=== PATIENT | female | born 1975 | race Caucasian/White ===

== ENCOUNTER → 2021-05-06 | Outpatient (CLI) | payer BC ==
[~2021-05-06] MED LIST: TOPI100 PO
== END ==
LOC: LAB SHORT 08:16 → LAB 08:16
DX: N39.0 Urinary tract infection, site not specified (principal); Z88.0 Allergy status to penicillin; Z88.2 Allergy status to sulfonamides
CPT/HCPCS: 87086

== ENCOUNTER → 2022-03-30 | Outpatient (CLI) | payer BC | END | disposition home or self-care (01) | LOC: LAB 08:27 → LAB SHORT 08:27 | DX: N39.0 Urinary tract infection, site not specified (principal) | CPT/HCPCS: 87077; 87086; 87186 ==

== ENCOUNTER → 2024-07-09 | Outpatient (CLI) | payer OTHER | LOC: LAB 08:09 → LAB SHORT 08:09 | DX: R30.0 Dysuria (principal); R35.0 Frequency of micturition; R31.9 Hematuria, unspecified | CPT/HCPCS: 87077; 87086; 87186 ==